=== PATIENT | female | born 1945 | race Hispanic/Latino ===

== ENCOUNTER 2022-02-21 20:53 | Emergency (ER) | payer MEDICARE, BC ==
[2022-02-21] MEDS ORDERED: Triple Antibiotic Oint 1 GM Packet ONE (22:03)
[2022-02-21] MEDS ORDERED: Boostrix 0.5 ML (Tdap) VIAL (>/=7 yrs of age) ONE (22:04)
== END 2022-02-21 23:28 | disposition home or self-care (01) ==
LOC: EDBD 20:53 → ERS 20:53
DX: S01.01XA Laceration without foreign body of scalp, initial encounter (principal); I10 Essential (primary) hypertension; F17.210 Nicotine dependence, cigarettes, uncomplicated; W22.8XXA Striking against or struck by other objects, initial encounter; Z23 Encounter for immunization
CPT/HCPCS: 70450; 90471; 90715

== ENCOUNTER 2022-08-24 12:26 | Outpatient (CLI) | payer MEDICARE, BC | END 2022-08-24 12:27 | disposition home or self-care (01) | LOC: BICMAMMO 12:26 | PROVIDERS: ATTEND Internal Medicine | DX: Z12.31 Encounter for screening mammogram for malignant neoplasm of breast (principal) | CPT/HCPCS: 77063; 77067 ==